=== PATIENT | male | born 1995 | race Caucasian/White ===

== ENCOUNTER → 2022-06-25 | Outpatient (CLI) | payer OTHER ==
--- NOTE | 2022-06-25 13:05 | DIREP ---
PROCEDURE:XRAY KNEE 2 VWS-LT COMPARISON:None. INDICATIONS:Z00.00 HISTORY AND PHYSICAL EVALUATION FINDINGS: BONES:Normal. JOINTS:Normal. SOFT TISSUES:Normal. OTHER:No additional findings. CONCLUSION:Normal examination. Dictated by: Fareed No M.D. on 06/25/2022 at 01:03 PM
== END | disposition home or self-care (01) ==
LOC: RAD 11:19
DX: Z00.00 Encounter for general adult medical examination without abnormal findings (principal)
CPT/HCPCS: 73560-LT